=== PATIENT | female | born 1955 | race Caucasian/White ===

== ENCOUNTER 2021-06-26 23:36 | Emergency (ER) | payer OTHER ==
[~2021-06-26] VITALS: Ht 144.8 cm; Wt 73.5 kg
--- NOTE | 2021-06-26 23:52 | NUR ---
Dr. Spaulding at bedside for mse.
[2021-06-27] MEDS ORDERED: KETOROLAC TROMETHAMINE 60 MG INJ IM ONE ×2 (00:05)
[2021-06-27] MEDS ORDERED: TDAP DIPH,PERTUSS,TET VAC/PF 0.5 ML DISP.SYRIN IM ONE ×2 (00:05)
[2021-06-27] MEDS ORDERED: NAPR-1164 PO (01:10)
[2021-06-27] MEDS ORDERED: HYDR-4209 PO (01:10)
--- NOTE | 2021-06-27 01:16 | NUR ---
Patient discharged to home in stable condition. Written and verbal after care instructions given. Patient verbalizes understanding of instructions. Stressed follow up or return to ER for worsening s/s. Pt out of ER with steady gait, no acute signs of distress, VSS, all belongings taken, provided with copies of xray and cd of images, to be driven home via private vehicle by daughter.
[2021-06-27 01:17] VITALS: BP 158/80
== END 2021-06-27 01:18 | disposition home or self-care (01) ==
LOC: ER 23:50
DX: S52.021A Displaced fracture of olecranon process without intraarticular extension of right ulna, initial encounter for closed fracture (principal); W01.0XXA Fall on same level from slipping, tripping and stumbling without subsequent striking against object, initial encounter; Y93.01 Activity, walking, marching and hiking; Y92.039 Unspecified place in apartment as the place of occurrence of the external cause
CPT/HCPCS: 29105; 73080; 90471; 90715; 96372; 99284; J1885; A4663